=== PATIENT | female | born 1945 | race Caucasian/White ===

== ENCOUNTER 2021-05-18 13:07 | Emergency (ER) | payer MEDICARE, OTHER ==
[~2021-05-18 13:07] MED LIST: ASPIRIN EC81 MG PO; LISINOPRIL10 MG PO; PERCOCET 5/325 T1 EA PO; PROTONIX40 M1 PO
[2021-05-18 14:34] LABS: HEMOGLOBIN 14.8 gm/dl (12.3-15.3); RED BLOOD COUNT 4.66 M/UL (4.00-5.10)
[2021-05-18 14:54] LABS: BUN/CREATININE RATIO 8 (0-10)
[2021-05-18] MEDS ORDERED: ZOFRAN 4 MG TAB4 MG PO (17:39)
[2021-05-18] MEDS ORDERED: PREDNISONE 20 M20 MG PO (17:45)
== END 2021-05-18 17:55 | disposition home or self-care (01) ==
LOC: ER1 13:07
PROVIDERS: Emergency Medicine
DX: U07.1 COVID-19 (principal); J45.909 Unspecified asthma, uncomplicated; Z88.0 Allergy status to penicillin; Z88.2 Allergy status to sulfonamides; Z91.041 Radiographic dye allergy status
CPT/HCPCS: 0240U; 71045; 80053; 81001; 85025; 99285

== ENCOUNTER 2021-05-22 16:34 | Emergency (ER) | payer MEDICARE, OTHER ==
[~2021-05-22 16:34] MED LIST changes: +PREDNISONE 20 M20 MG PO; +ZOFRAN 4 MG TAB4 MG PO
== END 2021-05-22 21:35 | disposition home or self-care (01) ==
LOC: ER1 16:34
DX: U07.1 COVID-19 (principal); J45.909 Unspecified asthma, uncomplicated; Z90.710 Acquired absence of both cervix and uterus; Z88.2 Allergy status to sulfonamides; Z88.0 Allergy status to penicillin; Z88.8 Allergy status to other drugs, medicaments and biological substances
CPT/HCPCS: 71045; 82550; 82553; 83874; 84484; 93005; 99285